=== PATIENT | male | born 1965 | race African-American/Black ===

== ENCOUNTER 2024-02-09 20:45 | Emergency (ER) | payer OTHER ==
[2024-02-09] MEDS ORDERED: Boostrix 0.5 ML (Tdap) VIAL (>/=7 yrs of age) ONE (22:26)
== END 2024-02-09 22:35 | disposition home or self-care (01) ==
LOC: CSHERS 20:45
DX: S80.852A Superficial foreign body, left lower leg, initial encounter (principal); E11.9 Type 2 diabetes mellitus without complications; I10 Essential (primary) hypertension; Z75.3 Unavailability and inaccessibility of health-care facilities; Z23 Encounter for immunization; X58.XXXA Exposure to other specified factors, initial encounter
CPT/HCPCS: 10120; 90471; 90715